=== PATIENT | male | born 1970 | race Caucasian/White ===

== ENCOUNTER 2017-09-26 20:08 | Outpatient (CLI) ==
[2016-05-03 18:50] VITALS: BMI 24.4
== END 2017-09-26 20:09 ==
LOC: AMBL 20:08
PROVIDERS: ATTEND Emergency Medicine
DX: S01.81XA Laceration without foreign body of other part of head, initial encounter (principal); S60.512A Abrasion of left hand, initial encounter; S31.139A Puncture wound of abdominal wall without foreign body, unspecified quadrant without penetration into peritoneal cavity, initial encounter; Y35.891A Legal intervention involving other specified means, law enforcement official injured, initial encounter